=== PATIENT | male | born 1955 | race Hispanic/Latino ===

== ENCOUNTER 2019-10-07 08:12 | Day surgery (SDC) | payer OTHER ==
[2019-10-07] MEDS ORDERED: Ringers Lactate 1,000 ML IV ONE (08:52)
[2019-10-07] MEDS ORDERED: LIDOCAINE 1% MPF 30 ML VIAL ONE (10:00)
[2019-10-07] MEDS ORDERED: PROPOFOL 200 MG/20 ML VIAL IV ONE ×2 (10:00)
[2019-10-07 11:49] VITALS: TEMP 97.3
[2019-10-07 11:50] VITALS: O2SAT 96
[2019-10-07 11:51] VITALS: BP 142/75
--- NOTE | 2019-10-07 23:25 | OP ---
Surgeon: Odell Polanco MD Procedure Performed: Esophagogastroduodenoscopy. Performing Physician: Odell Polanco MD. Indications For Procedure: Long-standing GERD, rule out Duarte's. Plan For Anesthesia: Monitored anesthesia care. Technique: After obtaining informed consent from the patient and explaining risks and complications which include, but are not limited to bleeding, infection, perforation, and anesthesia complication, patient was placed in the left lateral position and sedation was given. From then on the scope was a dvanced to the mouth and carefully guided up until the second portion of the duodenum. After the com pletion of examination, scope and equipment were withdrawn and procedure terminated in a safe manner. Findings: Esophagus: No gross lesion seen in the upper and mid esophagus, however, in the distal es ophagus, a small hiatal hernia was visualized, also seen was salmon-colored mucosa highly suggestive of Duarte's with 2 tongues protruding in the esophagus. Abbott classification C3 M4. Multiple biop sies taken from different areas of this abnormal lining. Stomach: Mild patchy erythema seen in the body and antrum, biopsies taken. Duodenum, the bulb, and second portion appeared normal. Complications: None. Tolerance To Anesthesia: Excellent. Postoperative Diagnosis: Suspected Duarte's, hiatal hernia, gastritis. Plan: 1.Await pathology results. 2.Follow up in the GI Clinic. 3.Repeat EGD in 1 year for surveillance. 4.We will start omeprazole or Protonix depending on insurance 40 mg once a day. US/MODL Voice ID: [id number] Report ID: [id number]
--- NOTE | 2019-10-07 23:25 | OP ---
Surgeon: Odell Polanco MD Procedure To Be Performed: Colonoscopy. Indication For Procedure: Screening. Plan For Anesthesia: Monitored anesthesia care. Technique: After obtaining informed consent from the patient explaining risks and complications whic h include, but are not limited to bleeding, infection, perforation, and anesthesia complication, the patient was placed in the left lateral position and sedation was given. Subsequently, a digital rect al exam was performed and then the scope was inserted into the rectum and carefully guided up until t he cecum. The cecum was identified by the ileocecal valve and the appendiceal orifice. The scope wa s gradually withdrawn while carefully examining the colonic mucosa. The quality of prep was fair. S cope withdrawal time was 14 minutes. After the completion of examination, scope and equipment were w ithdrawn and procedure terminated in a safe manner. Findings: Digital rectal exam was normal. In the sigmoid colon, few small diverticula seen. A 4 mm sessile polyp was also seen in the sigmoid, removed with hot biopsy. In the rectum, 3 mm polyp was seen and removed with hot biopsy. Also retroflexion revealed grade 1 internal hemorrhoids. At the s plenic flexure, a 1 cm polyp was seen, this was removed with snare polypectomy. In the ascending col on, a 5 mm sessile polyp was seen, this was removed by hot biopsy. Complications: None. Tolerance To Anesthesia: Excellent. Postoperative Diagnoses: Polyps, diverticulosis. Plan: 1.Await pathology results. 2.Follow up in the GI clinic in 2 weeks. 3.Repeat colonoscopy in 3-5 years based on pathology. US/MODL Voice ID: [id number] Report ID: [id number]
== END 2019-10-07 11:30 | disposition home or self-care (01) ==
LOC: OR 08:12
PROVIDERS: ATTEND Internal Medicine Gastroenterology
PROC: 0DBK8ZX Excision of Ascending Colon, Via Natural or Artificial Opening Endoscopic, Diagnostic (ICD-10-PCS; 2019-10-07)
PROC: 0DBN8ZX Excision of Sigmoid Colon, Via Natural or Artificial Opening Endoscopic, Diagnostic (ICD-10-PCS; 2019-10-07)
PROC: 0DBP8ZX Excision of Rectum, Via Natural or Artificial Opening Endoscopic, Diagnostic (ICD-10-PCS; 2019-10-07)
PROC: 0DBL8ZX Excision of Transverse Colon, Via Natural or Artificial Opening Endoscopic, Diagnostic (ICD-10-PCS; 2019-10-07)
PROC: 0DB38ZX Excision of Lower Esophagus, Via Natural or Artificial Opening Endoscopic, Diagnostic (ICD-10-PCS; principal; 2019-10-07 09:45)
PROC: 0DB68ZX Excision of Stomach, Via Natural or Artificial Opening Endoscopic, Diagnostic (ICD-10-PCS; 2019-10-07 09:45)
DX: Z12.11 Encounter for screening for malignant neoplasm of colon (principal); D12.2 Benign neoplasm of ascending colon; D12.3 Benign neoplasm of transverse colon; K63.5 Polyp of colon; K62.1 Rectal polyp; K29.50 Unspecified chronic gastritis without bleeding; K57.90 Diverticulosis of intestine, part unspecified, without perforation or abscess without bleeding; K21.9 Gastro-esophageal reflux disease without esophagitis; K44.9 Diaphragmatic hernia without obstruction or gangrene; K64.8 Other hemorrhoids; I10 Essential (primary) hypertension; F17.210 Nicotine dependence, cigarettes, uncomplicated; Z83.3 Family history of diabetes mellitus; Z82.49 Family history of ischemic heart disease and other diseases of the circulatory system
CPT/HCPCS: 88312; 88313; 88305; 43239; 45384; 45385; J2704 ×2; J7120

== ENCOUNTER 2019-11-03 13:33 | Emergency (ER) | payer OTHER ==
[2019-11-03] MEDS ORDERED: FLUORESCEIN SODIUM 1 MG/WRAP ONE (14:49)
[2019-11-03] MEDS ORDERED: TETRACAINE HCL 0.5% 4ML OPTH ONE (14:49)
--- NOTE | 2019-11-03 15:24 | EDPHYS ---
Physician Documentation [facility] Name: Lupillo Glass Age: 64 yrs Sex: Male : 1955 Arrival Date: 11/03/2019 Time: 13:35 Bed 28 Private MD: ED Physician Sanchez Corral HPI: 11/03 15:11 This 64 yrs old Male presents to ER via Ambulatory with complaints of Eye pm1 Injury. 15:11 The patient is experiencing foreign body sensation, The patient sustained Unknown. to pm1 the right eye, caused by an unknown mechanism. Onset: The symptoms/episode began/occurred today. Duration: the symptoms are continuous. Aggravated by closing eye, Alleviated by opening eye. Associated signs and symptoms: Pertinent negatives: None. Patient does not utilize any form of vision correction. Severity of symptoms: in the emergency department the symptoms are unchanged. The patient has not experienced similar symptoms in the past. It is unknown whether or not the patient has recently seen a physician. Historical: - Allergies: 13:59 No Known Allergies; sg - PMHx: 13:59 Hypertension; sg - Immunization history:: Adult Immunizations up to date. - Social history:: Smoking status: Patient/guardian denies using tobacco. - Ebola Screening: : Patient negative for fever greater than or equal to 101.5 degrees Fahrenheit, and additional compatible Ebola Virus Disease symptoms Patient denies exposure to infectious person Patient denies travel to an Ebola-affected area in the 21 days before illness onset No symptoms or risks identified at this time. ROS: 15:11 Constitutional: Negative for fever, chills, and weight loss. pm1 15:11 Cardiovascular: Negative for chest pain, palpitations, and edema, Respiratory: Negative for shortness of breath, cough, wheezing, and pleuritic chest pain, Abdomen/GI: Negative for abdominal pain, nausea, vomiting, diarrhea, and constipation, Back: Negative for injury and pain, MS/Extremity: Negative for injury and deformity, Skin: Negative for injury, rash, and discoloration, Neuro: Negative for headache, weakness, numbness, tingling, and seizure. 15:11 Eyes: Positive for foreign body sensation, pain, Negative for blurry vision, visual disturbance. 15:11 All other systems are negative. Exam: 15:25 Visual Acuity: I have reviewed the nursing documentation. pm1 15:25 Constitutional: This is a well developed, well nourished patient who is awake, alert, and in no acute distress. Head/Face: Normocephalic, atraumatic. 15:25 Chest/axilla: Normal chest wall appearance and motion. Nontender with no deformity. No lesions are appreciated. Cardiovascular: Regular rate and rhythm with a normal S1 and S2. No gallops, murmurs, or rubs. Normal PMI, no JVD. No pulse deficits. Respiratory: Lungs have equal breath sounds bilaterally, clear to auscultation and percussion. No rales, rhonchi or wheezes noted. No increased work of breathing, no retractions or nasal flaring. Skin: Warm, dry with normal turgor. Normal color with no rashes, no lesions, and no evidence of cellulitis. MS/ Extremity: Pulses equal, no cyanosis. Neurovascular intact. Full, normal range of motion. 15:25 Eyes: Pupils: equal, round, and reactive to light and accomodation, Extraocular movements: intact throughout, Conjunctiva: normal, Corneas: abrasion, that is small, approximately 1 mm(s), on the right, at 2 o'clock, foreign body, on the right, at 2 o'clock, pin point sized black speck removed with sterile wet q-tip, a fluorescein strip employed to appreciate the findings, Sclera: no appreciated abnormality, Lids and lashes: appear normal. 15:25 Neuro: Orientation: is normal, Motor: moves all fours. Vital Signs: 13:58 Pulse 88; Resp 18; Temp 98.1; Pulse Ox 99% on R/A; sg 14:00 BP 135 / 79; sg MDM: 14:52 Patient medically screened. pm1 15:11 Data reviewed: vital signs. Data interpreted: Pulse oximetry: on room air is 99 %. pm1 Interpretation: normal. Counseling: I had a detailed discussion with the patient and/or guardian regarding: the historical points, exam findings, and any diagnostic results supporting the discharge/admit diagnosis, the need for outpatient follow up, for definitive care, an opthalmologist, to return to the emergency department if symptoms worsen or persist or if there are any questions or concerns that arise at home. 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 Exp: sr5 05/02/2021. Lot #: [id number]. } Route: IM; Site: left deltoid; Disposition: 11/04 09:01 Co-signature as Attending Physician, Sanchez Corral MD I agree with the assessment and kdr plan of care. Disposition: 11/03/19 15:23 Discharged to Home. Impression: Injury of conjunctiva and corneal abrasion without foreign body, right eye - foreign body removed. - Condition is Stable. - Discharge Instructions: Corneal Abrasion. - Prescriptions for Erythromycin 5 mg/gram (0.5 %) Ophthalmic Ointment - apply 1 ribbon by OPHTHALMIC route every 8 hours; 1 tube. - Medication Reconciliation Form, Thank You Letter, Antibiotic Education, Prescription Opioid Use form. - Follow up: Emergency Department; When: As needed; Reason: Worsening of condition. Follow up: Private Physician; When: 2 - 3 days; Reason: Recheck today's complaints, Continuance of care, Re-evaluation by your physician. - Problem is new. - Symptoms have improved. Signatures: Walter Rubio RN RN Sanchez Corral MD MD [facility] Ashlee Fishman RN RN Kayden Null NP RN PATIENT CARE pm1 Matteo Millard RN RN sr5 Corrections: (The following items were deleted from the chart) 11/03 15:45 15:23 11/03/2019 15:23 Discharged to Home. Impression: Injury of conjunctiva and iw corneal abrasion without foreign body, right eye - foreign body removed. Condition is Stable. Forms are Medication Reconciliation Form, Thank You Letter, Antibiotic Education, Prescription Opioid Use. Follow up: Emergency Department; When: As needed; Reason: Worsening of condition. Follow up: Private Physician; When: 2 - 3 days; Reason: Recheck today's complaints, Continuance of care, Re-evaluation by your physician. Problem is new. Symptoms have improved. pm1
--- NOTE | 2019-11-03 15:24 | ER ---
Nurse's Notes [facility] Name: Lupillo Glass Age: 64 yrs Sex: Male : 1955 Arrival Date: 11/03/2019 Time: 13:35 Bed 28 Private MD: Diagnosis: Injury of conjunctiva and corneal abrasion without foreign body, right eye-foreign body removed Presentation: 11/03 13:59 Presenting complaint: Patient states: Feels like an eye lash is stuck in my eye when I sg close it, there is no pain with the eye open. Transition of care: patient was not received from another setting of care. Mechanism of Injury: No Mechanism of Injury. The patient denies any loss of vision. Onset of symptoms was November 03, 2019. Risk Assessment: Do you want to hurt yourself or someone else? Patient reports no desire to harm self or others. Initial Sepsis Screen: Does the patient meet any 2 criteria? No. Patient's initial sepsis screen is negative. Does the patient have a suspected source of infection? No. Patient's initial sepsis screen is negative. Care prior to arrival: None. 13:59 Method Of Arrival: Ambulatory sg 13:59 Acuity: MAAME 4 sg Historical: - Allergies: 13:59 No Known Allergies; sg - PMHx: 13:59 Hypertension; sg - Immunization history:: Adult Immunizations up to date. - Social history:: Smoking status: Patient/guardian denies using tobacco. - Ebola Screening: : Patient negative for fever greater than or equal to 101.5 degrees Fahrenheit, and additional compatible Ebola Virus Disease symptoms Patient denies exposure to infectious person Patient denies travel to an Ebola-affected area in the 21 days before illness onset No symptoms or risks identified at this time. Screenin:00 Abuse screen: Denies threats or abuse. Denies injuries from another. Nutritional iw screening: No deficits noted. Tuberculosis screening: No symptoms or risk factors identified. Fall Risk None identified. Assessment: 14:59 General: Appears in no apparent distress. Behavior is calm, cooperative. Pain: iw Complains of pain in right eye. Neuro: Level of Consciousness is awake, alert, obeys commands, Oriented to person, place, time, situation, Moves all extremities. Full function. EENT: Eyes Sclera/Cornea. Derm: Skin is intact, is healthy with good turgor. Musculoskeletal: Range of motion: intact in all extremities. 15:37 Reassessment: Visual acuity, L 20/20, R 20/25, Both 20/20. sr5 Vital Signs: 13:58 Pulse 88; Resp 18; Temp 98.1; Pulse Ox 99% on R/A; sg 14:00 BP 135 / 79; sg ED Course: 13:35 Patient arrived in ED. mr 13:53 Arm band placed on. sg 14:00 Triage completed. sg 14:42 Ashlee Fishman, RN is Primary Nurse. iw 14:52 Kayden Null NP is PHCP. pm1 14:52 Sanchez Corral MD is Attending Physician. pm1 15:10 Assist provider with eye exam of right eye. using fluorescein stain, Performed by Kayden Null NP Patient tolerated well. 15:35 Patient has correct armband on for positive identification. iw 15:40 Patient did not have IV access during this emergency room visit. 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 Exp: sr5 05/02/2021. Lot #: [id number]. } Route: IM; Site: left deltoid; Outcome: 15:23 Discharge ordered by . pm1 15:44 Discharged to home ambulatory, with family. iw 15:44 Condition: good 15:44 Discharge instructions given to patient, family, Instructed on discharge instructions, follow up and referral plans. need for f/u with transportation solutions manager, list of providers given Demonstrated understanding of instructions, follow-up care. 15:45 Patient left the ED. iw Signatures: Walter Rubio, RN LALITA Maggy Ortiz mr Ashlee Fishman RN RN Kayden Null, [employer] pm1 Matteo Millard RN RN sr5
[2019-11-03] MEDS ORDERED: TETANUS & DIPHTHERIA TOX,ADULT 0.5 ML VIAL ONE (15:30)
[2019-11-03 18:18] VITALS: BP 135/79; TEMP 98.1; O2SAT 99
== END 2019-11-03 15:45 | disposition home or self-care (01) ==
LOC: ER 13:33
PROC: 08C Eye, Extirpation (ICD-10-PCS; principal; 2019-11-03)
DX: S00.251A Superficial foreign body of right eyelid and periocular area, initial encounter (principal); I11.0 Hypertensive heart disease with heart failure; Z23 Encounter for immunization
CPT/HCPCS: 90471; 90714; 99283